=== PATIENT | female | born 1975 | race Caucasian/White ===

== ENCOUNTER → 2018-02-07 12:41 | Outpatient (CLI) | payer BC, SELFPAY ==
--- NOTE | 2018-02-07 12:44 | XR_ITS ---
XR foot wt bearing RT 3V HISTORY: ITS.REASON: pain ORDERING PHYSICIAN: Graciela Delvalle DPM PATIENT AGE: 42 years COMPARISON: None FINDINGS: There is mild hallux valgus with first metatarsal phalangeal angle of 21 degrees with minimal hypertrophic change of the distal aspect of the first metatarsal. There is mild pes planus with Mearys angle of -14 degrees. A small calcaneal spur 5 mm. No fracture or dislocation. No lytic or blastic change. There is mild prominence of the space at the base of the first and second metatarsals however, the alignment of the second metatarsal tarsal joint is maintained.. A well-circumscribed calcific density which may represent a accessory center of ossification or sesamoid bone is present at the base of the first metatarsal laterally IMPRESSION: 1. Hallux valgus with bunion formation 2. Pes planus. 3. Mild prominence of the space at the base of the first and second metatarsal
--- NOTE | 2018-02-07 12:44 | XR_ITS ---
XR foot wt bearing LT 3V HISTORY: ITS.REASON: pain ORDERING PHYSICIAN: Graciela Delvalle DPM PATIENT AGE: 42 years COMPARISON: 02/10/2008 FINDINGS: There is mild hallux is with first metatarsophalangeal angle of 24 degrees with mild hypertrophic change of the distal aspect of the first metatarsal. Small calcaneal spur is noted. There is mild prominence of the space between the base of the first and second metatarsals of 5 mm. The second metatarsal tarsal junction however is maintained. No fracture or dislocation. There is a well-circumscribed calcific density along the base of the first metatarsal laterally similar to the previous exam of 02/10/2008 IMPRESSION: Hallux valgus with bunion formation Prominence of the space at the base of the first and second metatarsals
== END ==
PROVIDERS: PCP Emergency Medicine; Visit Provider Podiatrist
DX: M79.671 Pain in right foot (principal); M79.672 Pain in left foot
CPT/HCPCS: 73630

== ENCOUNTER → 2018-02-16 14:52 | Outpatient (REF) | payer BC, SELFPAY | LOC: LAB 14:52 | PROVIDERS: Visit Provider Podiatrist | DX: M67.471 Ganglion, right ankle and foot (principal) | CPT/HCPCS: 87070; 87205 ==

== ENCOUNTER → 2020-09-03 15:03 | Outpatient (CLI) | payer BC, SELFPAY ==
[2020-09-03 15:13] LABS: Basophils # 0.1 K/mm3 (0-0.2); Basophils % 0.9 % (0.1-2.0); Eosinophils # 0.1 K/mm3 (0.0-0.4); Eosinophils % 1.6 % (0.1-12.0); Hematocrit 50.6 % (37.0-47.0); Hemoglobin 16.9 g/dL (12.2-16.2); Lymphocytes # 1.1 K/mm3 (0.7-4.5); Lymphocytes % 14.3 % (10-50); Mean Corpuscular HGB Conc 33.4 g/dL (31.8-35.4); Mean Corpuscular Hemoglobin 31.8 pg (27.0-31.2); Mean Corpuscular Volume 95.3 fl (81-99); Mean Platelet Volume 7.9 fl (7.4-10.4); Monocytes # 0.3 K/mm3 (0.1-1.0); Monocytes % 3.9 % (1.7-9.3); Neutrophils # 6.3 K/mm3 (1.8-7.8); Neutrophils % 79.3 % (37.0-80.0); Platelet Count 375 K/mm3 (142-424); Red Blood Count 5.31 M/mm3 (4.20-5.40); Red Cell Distribution Width 13.9 % (11.5-17.5)
[2020-09-03 15:22] LABS: Alanine Aminotransferase 20 U/L (12-78); Albumin Level 4.8 g/dl (3.5-5.0); Albumin/Globulin Ratio 1.5 (1.1-1.8); Alkaline Phosphatase 81 U/L (38-126); Anion Gap 10.9 mEq/L (5-15); Aspartate Amino Transferase 24 U/L (14-36); Bilirubin,Total 0.5 mg/dl (0.2-1.3); Blood Urea Nitrogen 15 mg/dl (7-17); Calcium 10.1 mg/dl (8.4-10.2); Carbon Dioxide 28 mmol/L (22.0-30.0); Chloride 107 mmol/L (98-107); Chol/HDL Ratio 2.9 (1-3.5); Cholesterol 181 mg/dl (140-200); Estimated Glomerular Filt Rate 78 ml/min (>60); GFR (African American) 95 ML/MIN (>60); Globulin 3.2 g/dL (1.3-3.2); Glucose 99 mg/dl (74-100); HDL Cholesterol 62 mg/dl (40-60); Potassium 4.9 mmoL/L (3.5-5.1); Sodium 141 mmol/L (136-145); Triglycerides 105 mg/dl (30-150); VLDL Cholesterol 21 mg/dL (0-40)
[2020-09-03 15:35] LABS: Direct LDL Cholesterol 91.51 mg/dL (100-129)
[2020-09-03 15:39] LABS: 25-OH Vitamin D, Total 43.8 ng/mL (30-100)
[2020-09-03 16:24] LABS: Free T4 (Free Thyroxine) 1.18 ng/dl (0.78-2.19)
[2020-09-03 16:38] LABS: Thyroid Stimulating Hormone 2.25 uIU/mL (0.465-4.68)
== END ==
PROVIDERS: Visit Provider Physician Assistant
DX: R53.83 Other fatigue (principal); R20.2 Paresthesia of skin; R53.1 Weakness
CPT/HCPCS: 80053; 80061; 82306; 84439; 84443; 85025

== ENCOUNTER → 2020-09-26 15:46 | Outpatient (CLI) | payer BC, SELFPAY ==
--- NOTE | 2020-09-26 15:46 | MM_ITS ---
PROCEDURE: MM DIG SCREENING MAMM BI W/CAD Digital Breast Tomosynthesis Included CLINICAL INDICATION: Breast cancer screening There is no personal or family history of breast cancer. COMPARISON: MG DMSB DIG MAMM-SCREEN BERNARD W/CAD from 07/08/2017 TECHNIQUE: Standard CC and MLO images and 3D Tomosynthesis was obtained. R2 CAD reviewed. FINDINGS: Scattered fibroglandular densities are seen in both breast and the findings are bilateral and symmetrical. There are a few benign-appearing microcalcifications in each breast. There is a stable small nodular benign-appearing density outer quadrant left breast. There is a mole marker axillary tail right breast. There are no CAD markings. IMPRESSION: Fibrofatty parenchyma with no suspicious lesions seen BI-RAD Category: 2 Benign Finding(s) FOLLOW-UP: 1YR 1 Year Follow-up (A letter has been sent to the patient regarding results of the study.) Dictated by: Dr. Romario Navarro MD 09/28/2020 11:31 Dr. Romario Navarro MD in [place] 09/28/2020 11:31
== END ==
PROVIDERS: PCP Emergency Medicine; Visit Provider Physician Assistant
DX: Z12.31 Encounter for screening mammogram for malignant neoplasm of breast (principal)
CPT/HCPCS: 77063; 77067

== ENCOUNTER → 2021-01-08 16:38 | Outpatient (CLI) | payer BC, SELFPAY ==
[2021-01-08 17:48] LABS: Basophils % 0.4 % (0.1-2.0); Eosinophils # 0.1 K/mm3 (0.0-0.4); Hematocrit 43.1 % (37.0-47.0); Hemoglobin 14.9 g/dL (12.2-16.2); Lymphocytes % 25.3 % (10-50); Mean Corpuscular HGB Conc 34.5 g/dL (31.8-35.4); Mean Corpuscular Volume 89.8 fl (81-99); Mean Platelet Volume 7.2 fl (7.4-10.4); Monocytes # 0.4 K/mm3 (0.1-1.0); Neutrophils # 5.4 K/mm3 (1.8-7.8); Neutrophils % 68.3 % (37.0-80.0); Platelet Count 310 K/mm3 (142-424); Red Cell Distribution Width 13.5 % (11.5-17.5); White Blood Count 7.9 K/mm3 (4.8-10.8)
[2021-01-08 18:21] LABS: Prothrombin Time 10.7 seconds (10.1-12.5)
[2021-01-08 18:22] LABS: Alanine Aminotransferase 20 U/L (12-78); Albumin Level 4.6 g/dl (3.5-5.0); Albumin/Globulin Ratio 1.7 (1.1-1.8); Alkaline Phosphatase 65 U/L (38-126); Aspartate Amino Transferase 26 U/L (14-36); Bilirubin,Total 0.4 mg/dl (0.2-1.3); Blood Urea Nitrogen 17 mg/dl (7-17); Calcium 9.1 mg/dl (8.4-10.2); Carbon Dioxide 28 mmol/L (22.0-30.0); Chloride 102 mmol/L (98-107); Chol/HDL Ratio 2.8 (1-3.5); Cholesterol 164 mg/dl (140-200); Estimated Glomerular Filt Rate 78 ml/min (>60); GFR (African American) 95 ML/MIN (>60); Globulin 2.7 g/dL (1.3-3.2); Glucose 86 mg/dl (74-100); HDL Cholesterol 59 mg/dl (40-60); Sodium 140 mmol/L (136-145); Total Protein,Serum 7.3 g/dl (6.3-8.2); Triglycerides 57 mg/dl (30-150); VLDL Cholesterol 11 mg/dL (0-40)
[2021-01-08 18:33] LABS: Direct LDL Cholesterol 87.31 mg/dL (100-129)
[2021-01-08 18:39] LABS: T4 (Thyroxine) 8.7 ug/dl (5.53-11.0)
[2021-01-08 18:53] LABS: Thyroid Stimulating Hormone 2.03 uIU/mL (0.465-4.68)
== END ==
PROVIDERS: Visit Provider Nurse Practitioner Family
DX: R23.3 Spontaneous ecchymoses (principal)
CPT/HCPCS: 80053; 80061; 84436; 84443; 85025; 85610

== ENCOUNTER 2021-05-23 18:15 | Emergency (ER) | payer BC, SELFPAY ==
[2021-05-23 18:37] VITALS: BP 177/106; PULSE 80; RESP 22; TEMP 36.8; O2SAT 97
--- NOTE | 2021-05-23 18:43 | HMH.EDUTC ---
[facility] [place] Disposition Clinical Impression: Trapezius muscle spasm Disposition: Home, Self-Care Condition on Discharge: Good Instructions: DI for Muscle Spasm Additional Instructions: Drink plenty of water and try to gently massage area Prescriptions: Cyclobenzaprine HCl [Cyclobenzaprine 10mg Tab*] 10 mg PO TIDP PRN 30 Days #60 tab PRN Reason: Muscle Spasm Transmission Status: Pending to [facility] Naproxen [Naproxen 500mg tab] 500 mg PO BID 10 Days #30 tab Transmission Status: Pending to [facility] Referrals: Rosita Heaton PA [Primary Care Provider] - Time of Disposition: 18:56 Medical Decision Making - Андрей Inquiry Pt receiving controlled substance: No Vital Signs: 05/23/21 18:37 Temperature 98.3 F Temperature Source Oral Pulse Rate [Right Brachial] 80 Respiratory Rate 22 Blood Pressure [Right Arm] 177/106 H Blood Pressure Mean [Right Arm] 129 Blood Pressure Source [Right Arm] Automatic Cuff Blood Pressure Position [Right Arm] Sitting 02 Sat by Pulse Oximetry 97 Oxygen Delivery Method Room Air [facility] [place] HPI - General Stated complaint: MED[facility] from Pain in neck and right arm Time Seen by Provider: 05/23/21 18:43 Mode of Arrival: Ambulatory Source of Information: Patient Limitations: No Limitations Description of Symptoms (Recalled from Triage Doc. by RN): arm pain HEENT Symptoms (Recalled from RN notes): No Resp Symptoms (Recalled from RN notes): No Skin Symptoms (Recalled from RN notes): No MS Symptoms (Recalled from RN notes): Yes Functional Status (Recalled from RN notes): yes - History of Present Illness Provider Complaint: Patient has had headaches, neck pain. Has been seeing chiropractor and yesterday she went to PT and had dry needling. 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 About nursing home through her route today, she started having pain in her right shoulder blade, radiating into neck and down right arm. She used a numbing patch but didn't get any relief. Tried to take an old Flexeril, but dropped it in the toilet. Onset (ago): day(s) (1) Location: right, upper extremity Radiation: extremity Severity: moderate Severity scale (1-10): 8 Quality: burning, stabbing Consistency: constant Relieving factors: immobilization Exacerbating factors: movement Associated symptoms: denies other symptoms Treatments prior to arrival: heat therapy - Related Data Previous Rx's Medication Instructions Recorded Cyclobenzaprine HCl 10 mg PO TIDP PRN 30 Days #60 tab 05/23/21 [Cyclobenzaprine 10mg Tab*] Naproxen [Naproxen 500mg tab] 500 mg PO BID 10 Days #30 tab 05/23/21 Allergies Allergy/AdvReac Type Severity Reaction Status Date / Time No Known Allergies Allergy Unverified 01/08/21 15:44 - Worker's Comp Is this a Worker's Comp case?: No Is this an [employer] Worker's Comp?: No Is this a [place] Worker's Comp?: No [facility] History - Hepatitis A Screen Drug use history?: No High risk sexual behaviors?: No History of sexually transmitted infection?: No Currently employed?: No Childcare worker?: No Do you have indoor plumbing?: Yes Do you have electricity?: Yes Attestation statement:: This patient has been screened for Hepatitis A risk factors. I have reviewed the patient's past medical history: Yes Medical History: Reports:: Anxiety, Depression Comment: Fibroid tumors Other Surgeries: Yes: , Other Comment: 05/2020; Fibroid - Social History Smoking Status: Never smoker Alcohol Intake: never Alcohol Intake Frequency:: other Substance Use Type: denies use Occupational Status: other - Psychiatric History Pschychiatric History:: Reports:: Anxiety, Depression Family Hx:: Cancer, Hypertension ROS Obtained: Yes All systems reviewed & no additional complaints - Musculoskeletal Musculoskeletal: Reports numbness, Reports radiating pain into limb, Reports tingling Physical Exam - General General appearance: alert, other (patient uncomf
[2021-05-23 18:59] VITALS: BP 177/106; PULSE 80; RESP 22; TEMP 36.8
== END 2021-05-23 18:59 | disposition home or self-care (01) ==
PROVIDERS: Emergency Provider Physician Assistant; PCP Physician Assistant
DX: M62.838 Other muscle spasm (principal); M54.12 Radiculopathy, cervical region
CPT/HCPCS: 96372; 99202; G0463

== ENCOUNTER 2021-05-24 15:10 | Emergency (ER) | payer BC, SELFPAY ==
[2021-05-24 15:12] VITALS: BP 159/108; PULSE 98; RESP 24; TEMP 36.7; O2SAT 98; BMI 29.2
--- NOTE | 2021-05-24 16:51 | HMH.EDGENADL ---
ED Disposition Clinical Impression: Cervical disc herniation Disposition: Home, Self-Care Condition on Discharge: Fair Instructions: DI for Herniated Disc Additional Instructions: Follow-up with your primary care provider on Wednesday to obtain a spine surgeon referral. Prednisone as prescribed. Percocet as needed for pain. Return to the emergency department if uncontrollable pain or increasing weakness of right arm or new weakness/numbness of other extremities or loss of bowel or bladder control. Additional instructions for CONTROLLED SUBSTANCES: You have been prescribed a medication that is a controlled substance. Controlled substances include pain medications known as opiates and sedative nerve medications known as benzodiazepines. Tramadol, fioricet, and gabapentin are also controlled substances. Some common opiates include: Codeine (such as Tylenol #3) Hydrocodone (Vicodin, Lortab, Lorcet, [place]) Oxycodone (Percocet, Percodan, Oxycodone, Oxy IR) Some common benzodiazepines include: Diazepam (Valium) Lorazepam (Ativan) Alprazolam (Xanax) Clonazepam (Klonopin) Oxazepam (Serax) All of these controlled substances are highly addictive and frequently abused. Misuse can and frequently does lead to addiction as well as overdose and . Medication should be stored in a locked cabinet or other secure storage unit. Do not store the medication in a motor vehicle. Short term supplies, 3 days or less, are prescribed because of the highly addictive nature of the medication. Any of the controlled substance medication NOT taken should be disposed of properly and NOT SAVED. The recommended method of disposing of unused medications is: Place the medicines in a sealable plastic bag. If the medicine is a solid, crush it or add water to dissolve it. Add something undesirable (cat litter, coffee grounds, etc.) Dispose of sealed bag in household trash Do not flush or pour unused medicines down a sink or drain. Controlled substances should not be shared, given away or sold. Because of the addictive nature and frequent abuse, these medications are sometimes stolen. These medications should be kept in a safe place where they cannot be stolen. Do not keep them in your car or purse. Lost or stolen prescriptions for controlled substances WILL NOT BE REFILLED in this emergency department, regardless of whether a police report was filed. Prescriptions: Oxycodone HCl/Acetaminophen [Percocet 5/325mg tablet] 1 tab PO Q6HP PRN #10 tablet PRN Reason: Moderate To Severe Pain Transmission Status: Received by [facility] predniSONE [Prednisone 20mg Tab] 20 mg PO BID #10 tab Transmission Status: Pending to [facility] Referrals: Rosita Heaton PA [Primary Care Provider] - - Critical Care Critical Care Time: No Attestation: On 05/24/21, the high probability of a clinically significant, sudden or life threatening deterioration of the following system(s) required my full and direct attention, intervention and personal management. The time I documented below is in addition to time spent performing reported procedures but includes the following listed in this critical care notation. Medical Decision Making - Андрей Inquiry Pt receiving controlled substance: Yes Андрей was queried for this patient: Yes Risks and benefits of using a controlled substance: were discussed with pt by me Vital Signs: 05/24/21 15:12 Temperature 98.1 F Temperature Source Oral Pulse Rate [Left Radial] 98 H Respiratory Rate 24 Blood Pressure [Left Arm] 159/108 H Blood Pressure Mean [Left Arm] 125 Blood Pressure Source [Left Arm] Automatic Cuff Blood Pressure Position [Left Arm] Sitting 02 Sat by Pulse Oximetry 98 Oxygen Delivery Method Room Air - Lab Data Lab Results 05/24/21 16:57: WBC 9.0, RBC 5.22, Hgb 16.3 H, Hct 49.7 H, MCV 95.2, MCH 31.3 H, MCHC 32.8, RDW 13.4, Plt Count 360, MPV 7.2 L, Neut % (Auto)
--- NOTE | 2021-05-24 16:53 | CT_ITS ---
PROCEDURE INFORMATION: Exam: CT Cervical Spine With Contrast Exam date and time: 05/24/2021 4:53 PM Age: 46 years old Clinical indication: Neck pain; Additional info: Radiculopathy after dry needling pain neck and down RT arm TECHNIQUE: Imaging protocol: Computed tomography images of the cervical spine with intravenous contrast. Radiation optimization: All CT scans at this facility use at least one of these dose optimization techniques: automated exposure control; mA and/or kV adjustment per patient size (includes targeted exams where dose is matched to clinical indication); or iterative reconstruction. Contrast material: ISOVUE; Contrast volume: 100 ml; Contrast route: IV; COMPARISON: No relevant prior studies available. FINDINGS: Bones/joints: No acute fracture. Normal alignment. Discs/Spinal canal/Neural foramina: At C5-C6 there is disc osteophyte complex resulting in right-sided neural foraminal narrowing. There appears to be a left paracentral disc extrusion at this level resulting in mass effect upon the thecal sac and spinal cord. No additional significant disc protrusion. No severe spinal canal stenosis. No significant neural foraminal narrowing. Lungs: Lung apices are normal. Soft tissues: Unremarkable. IMPRESSION: At C5-C6 there is disc osteophyte complex resulting in right-sided neural foraminal narrowing. There appears to be a left paracentral disc extrusion at this level resulting in mass effect upon the thecal sac and spinal cord. Recommend MRI of the cervical spine to confirm these findings as MRI is more sensitive and specific to discrete disc abnormalities.
[2021-05-24 17:11] LABS: Basophils # 0.1 K/mm3 (0-0.2); Basophils % 0.6 % (0.1-2.0); Chloride 103 mmol/L (98-107); Eosinophils # 0.1 K/mm3 (0.0-0.4); Eosinophils % 0.5 % (0.1-12.0); Hematocrit 49.7 % (37.0-47.0); Hemoglobin 16.3 g/dL (12.2-16.2); Lymphocytes # 1.5 K/mm3 (0.7-4.5); Lymphocytes % 17.1 % (10-50); Mean Corpuscular HGB Conc 32.8 g/dL (31.8-35.4); Mean Corpuscular Hemoglobin 31.3 pg (27.0-31.2); Mean Corpuscular Volume 95.2 fl (81-99); Mean Platelet Volume 7.2 fl (7.4-10.4); Monocytes # 0.4 K/mm3 (0.1-1.0); Monocytes % 4.2 % (1.7-9.3); Neutrophils % 77.6 % (37.0-80.0); Platelet Count 360 K/mm3 (142-424); Red Blood Count 5.22 M/mm3 (4.20-5.40); Red Cell Distribution Width 13.4 % (11.5-17.5); Sodium 138 mmol/L (136-145)
[2021-05-24 17:12] LABS: Potassium 4.1 mmoL/L (3.5-5.1)
[2021-05-24 17:14] LABS: Alanine Aminotransferase 19 U/L (12-78); Albumin Level 4.5 g/dl (3.5-5.0); Albumin/Globulin Ratio 1.6 (1.1-1.8); Alkaline Phosphatase 73 U/L (38-126); Anion Gap 12.1 mEq/L (5-15); Aspartate Amino Transferase 29 U/L (14-36); Bilirubin,Total 0.6 mg/dl (0.2-1.3); Blood Urea Nitrogen 11 mg/dl (7-17); Carbon Dioxide 27 mmol/L (22.0-30.0); Creatinine Clearance Estimated 146 mL/min (50-200); Estimated Glomerular Filt Rate 109 ml/min (>60); GFR (African American) 131 ML/MIN (>60); Globulin 2.8 g/dL (1.3-3.2); Total Protein,Serum 7.3 g/dl (6.3-8.2)
[2021-05-24 17:15] LABS: Calcium 9.6 mg/dl (8.4-10.2); Glucose 97 mg/dl (74-100)
[2021-05-24 17:20] LABS: C-Reactive Protein 0.8 mg/L (0-4)
[2021-05-24 17:33] LABS: Erythrocyte Sedimentation Rate 4 mm/hr (0-20)
[2021-05-24 20:16] VITALS: BP 162/94; PULSE 99; RESP 18; TEMP 36.8; O2SAT 100
== END 2021-05-24 20:20 | disposition home or self-care (01) ==
PROVIDERS: Emergency Provider Emergency Medicine; PCP Physician Assistant
DX: M54.12 Radiculopathy, cervical region (principal); M47.812 Spondylosis without myelopathy or radiculopathy, cervical region; F41.8 Other specified anxiety disorders
CPT/HCPCS: 72126; 80053; 85025; 85651; 86140; 96374; 96375; 96376; 99283; J2405; Q9967

== ENCOUNTER → 2021-05-29 10:27 | Outpatient (POV) | payer BC, SELFPAY ==
[2021-05-29 11:05] VITALS: BP 148/90; PULSE 94; RESP 18; O2SAT 98; BMI 29.8
--- NOTE | 2021-05-29 12:19 | HMH.PMCON ---
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 The patient is having worsening pain. We will order the patient lidocaine patches as she has been trying to use this for relief. We will order a cervical epidural steroid injection at C5-C6 area. She is not on any anticoagulation therapy. She will continue with her naproxen. She was unable to take Percocet or cyclobenzaprine. She has been advised to stop these medications and we will start her on tramadol 50 mg 1 tablet p.o. twice daily as needed for pain. We will see if this relieves pain until injections. We will also refer the patient for more physical therapy locally. She has had chiropractic therapy home therapy as well as online therapy. She has also tried dry needling. We will get the patient a neurosurgical referral as well to [facility] for disc herniation. We will see the patient back after her cervical epidural steroid injection for reevaluation symptoms. She is not on any anticoagulation therapy and is not diabetic. Risks and benefits of the procedure have been explained to the patient. Patient would like to proceed with the procedure. Possible side effects of corticosteroids have been discussed with the patient. Risks and benefits of the procedure have been explained to the patient. Patient would like to proceed with the procedure. Patient has been instructed to contact the clinic with any concerns before the next appointment. Dr. Mccullough has reviewed this note and agrees with this plan of care. This note was dictated using voice recognition software and make contain errors or omissions. 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 She says that she began to have to sleep specific ways to get any relief. The pain progressively worsened to the point she was unable to lie flat on her back. She does have to use a rolled up pillow or towel for relief under her neck. The patient is having pain radiating into her right arm and into her first and second finger. She has had dry needling in the past along with chiropractic therapy and online recommendations. She has tried diclofenac. She did go to the emergency room twice and was given Percocet as well as cyclobenzaprine and prednisone. These medications only made her groggy and did not help with pain. She is continuing with naproxen. The pain is a dull ache with radiation into her arm on the right side only. She says that she is having difficulty grasping objects and having difficulty raising her right arm. She does rate her pain a 7 out of 10. She is tearful today. She does have an MRI of her cervical spine. She has got minimal relief from treatments thus far. CC: Nathalie Kirkpatrick APRN [facility] History I have reviewed the patient's past medical history: Yes Medical History: Reports:: Anxiety, Depression *Have you ever received a pneumonia vaccine?: No *Have you received a fl
== END ==
PROVIDERS: Visit Provider Clinical Nurse Specialist Family Health
DX: M47.892 Other spondylosis, cervical region (principal); M54.12 Radiculopathy, cervical region; S13.101A Dislocation of unspecified cervical vertebrae, initial encounter; M50.20 Other cervical disc displacement, unspecified cervical region
CPT/HCPCS: 99202; G0463

== ENCOUNTER → 2021-06-11 12:40 | Outpatient (CLI) | payer BC, SELFPAY | PROVIDERS: PCP Physician Assistant; Visit Provider Physician Assistant | DX: M54.2 Cervicalgia (principal) ==

== ENCOUNTER 2021-06-13 07:52 | Day surgery (SDC) | payer BC, SELFPAY ==
[2021-06-13 08:03] VITALS: BP 179/101; PULSE 100; RESP 20; TEMP 36.9; O2SAT 99
[2021-06-13 09:02] VITALS: BP 180/88; PULSE 135; RESP 18; O2SAT 98
[2021-06-13 09:09] VITALS: BP 176/90; PULSE 117; RESP 18; O2SAT 99
[2021-06-13 09:19] VITALS: BP 172/107; PULSE 104; RESP 20; O2SAT 97
--- NOTE | 2021-06-13 10:01 | HMH.PMPROC ---
- Procedure Date: 06/13/21 Time: 10:01 Anesthesiologist:: Jaison Mccullough MD Complications:: None Pre-procedure Diagnosis:: Degenerative disc disease of the cervical spine with cervical radiculopathy symptoms Post-procedure Diagnosis:: Same Indications for Procedure:: Patient is a pleasant 46-year-old white female who we are treating for neck pain with cervical radicular symptoms. She has increasing pain in her neck radiating down into her right arm and right hand. We will do a cervical epidural steroid injection today to see if this helps with her pain symptoms. Procedure Details:: Cervical epidural steroid injection under fluoroscopy Informed consent was obtained and the risks and benefits of the procedure was explained to the patient. The patient was taken to the procedure room placed prone on the procedure table. The neck was prepped using ChloraPrep. The skin and subcutaneous tissues were anesthetized using lidocaine. I placed a 18-gauge epidural needle into the C5-C6 interspace and advanced using [id number] to air and fluoroscopic guidance. After confirmation of needle placement in the epidural space with dye, I injected 3 mL's lidocaine 1.5% and Depo-Medrol 80 mg. The patient tolerated the procedure well with no complications. Plan and Disposition:: We will follow-up with her in 2 weeks. Will reevaluate symptoms at that time.
== END 2021-06-13 09:20 | disposition home or self-care (01) ==
LOC: SC.PAINP 07:56
PROVIDERS: PCP Physician Assistant; Visit Provider Anesthesiology
DX: M50.10 Cervical disc disorder with radiculopathy, unspecified cervical region (principal); F32.A Depression, unspecified; F41.9 Anxiety disorder, unspecified; M19.90 Unspecified osteoarthritis, unspecified site
CPT/HCPCS: 62321; J1040; Q9966

== ENCOUNTER → 2021-07-03 10:16 | Outpatient (POV) | payer BC, SELFPAY ==
[2021-07-03 10:53] VITALS: BP 150/93; PULSE 78; RESP 18; O2SAT 98; BMI 29.2
--- NOTE | 2021-07-03 11:12 | P.CONS_ITS ---
[facility] Pain Management SOAP Note Subjective:: Patient is a pleasant 46-year-old white female who presents today for follow-up after #1 cervical epidural steroid injection at C5-C6. Patient says she got excellent relief and does not have any pain at this time. She does continue to have numbness in her first finger and thumb periodically. She says that the pain, however, has subsided. She does rate her pain a 0 out of 10 today. She does continue with physical therapy and is planning physical therapy today. She does continue using CBD salve and oil sublingual that she also feels gives her significant relief. Review of Systems General: No recent weight changes, no fever, no sleep disturbances Respiratory: No cough, no shortness of air, no recurring pulmonary infections Cardiovascular/peripheral vascular: No chest pain, no palpitations, no edema, no shortness of breath Gastrointestinal: No new onset incontinence, normal bowel movements reported Genitourinary: No new onset incontinence Musculoskeletal: Numbness first finger and thumb to right arm Psychiatric: [Normal mood/affect] Neurological: [Denies weakness in extremities], [denies balance issues] Objective:: Physical exam General: Alert and oriented x3, no acute distress, pleasant and cooperative Lungs: Respirations even and unlabored, symmetrical chest expansion Eyes: PERRL Musculoskeletal: Flexion and extension of cervical [spine] somewhat guarded secondary to pain, normal gait noted Neurological: Speech clear, no gross sensory deficit Assessment:: Degenerative disc disease cervical spine cervical radiculopathy symptoms Plan:: Patient is doing well overall. She would like to follow-up with us as needed. She says she has gotten significant relief from #1 cervical epidural steroid injection. She has been advised to contact the clinic if she has any concerns in the future. Patient has been instructed to contact the clinic with any concerns before the next appointment. Dr. Mccullough has reviewed this note and agrees with this plan of care. This note was dictated using voice recognition software and make contain errors or omissions. [facility] History I have reviewed the patient's past medical history: Yes Medical History: Reports:: Anxiety, Depression Denies:: Cancer, Diabetes Mellitus Type 1, Diabetes Mellitus Type 2, MRSA, Seizures *Have you ever received a pneumonia vaccine?: No *Have you received a flu vaccine this season?: Yes Other Medical History: Reports: Arthritis Other Surgeries: Yes: , Other Amputation: No Fractures: No - *Social History Smoking Status: Never smoker Alcohol Intake: never Alcohol Intake Frequency:: other Substance Use Type: denies use *Occupational Status:: employed Housing: house Household Members: spouse *Travel in the last 8 weeks: None - Psychiatric History Pschychiatric History:: Reports:: Anxiety, Depression Family Hx:: Cancer, Hypertension
== END ==
PROVIDERS: Visit Provider Clinical Nurse Specialist Family Health
DX: M50.10 Cervical disc disorder with radiculopathy, unspecified cervical region (principal)
CPT/HCPCS: 99212; G0463

== ENCOUNTER 2021-07-08 17:00 | Outpatient (RCR) | payer BC, SELFPAY ==
--- NOTE | 2021-06-06 11:36 | HMH.PTOPEV ---
PT Outpatient Evaluation Rehab PT Outpatient Evaluation Start: 06/06/21 11:21 Freq: Status: Active Protocol: Document 06/06/21 11:21 ALFREDO (Rec: 06/06/21 11:36 ALFREDO [id number]) Electronically Signed By Kaden Mg, PT 06/06/21 11:21 Outpatient Therapy Subjective History Subjective History Patient is a 46 year old female presenting to outpatient PT with reports of chronic cervical spine pain (1 year) with an acute radicular symptom exacerbation starting approx 1 week ago. Most recent imaging indicates C5/6 disc osteophyte. Radicular symtpoms increase with cervical flexion indicating disc pathology. No other comorbidities to report. She has previously seen in PT and chiro with minimal relief noted. She was referred to pain mangement for epidural injections, but patient opted to try PT first secondary to fear avoidance. Chief Complaint Pain,Paresthesia Symptom Type Ache,Sharp,Numbness,Tingling Symptoms Relieved By Rest/Positioning,Ice,OTC Meds, Prescription Meds Symptoms Aggravated By Physical Activity Prior Functional Limitations None Current Functional Limitations Reaching,Lifting,Housework, Driving,Sleeping Symptom Description Constant but Variable Level of pain today (0-10) 2 Pain scale - at its best (0-10) 2 Pain scale - at its worst (0-10) 10 Cervical Eval Palpation Cervical Muscles R Cervical Paraspinal,R Suboccipital,R SCM,R CT Junction,R Thoracic Paraspinals Cervical/Thoracic Palpation Findings Tenderness,Spasm,Trigger Point Posture Head/C-Spine Posture Sitting Position C-Spine Flattened Head/C-Spine Posture Standing Position C-Spine Flattened Flexibility Deficits Upper Trapezius Muscle Length (R) Moderate Tightness Levaetor Scapulae Muscle Length (R) Moderate Tightness Scalene Group Muscle Length (R) Moderate Tightness Pectoralis Minor Muscle Length (R) Moderate Tightness Passive Joint Mobility Cervical PIVM Dec: R OA L OA R AA L AA
--- NOTE | 2021-07-03 13:11 | HMH.RHREAS ---
Rehab Reassessment Rehab OP Re-assessment Start: 07/03/21 13:00 Freq: Status: Active Protocol: Document 07/03/21 13:00 ALFREDO (Rec: 07/03/21 13:10 ALFREDO [id number]) Electronically Signed By Kaden Mg, PT 07/03/21 13:00 Rehab Re-assessment Subjective Subjective Patient reports 75% improvement since start of care. Objective Objective Notes Cervical AROM: WFL MMT: 5/5 grossly Pain: 2/10 today; 4/10 at worst over past week Special tests: spurlings - Neuro: dec sensation C6 Assessment Progress Assessment Progressing as Expected Assessment Notes Patient is tolerating progression of Rx well. She recently received an epidural injection that has provided some significant relief. Patient is experiencing decreased radicular symptoms and other objective improvements as noted above. She contiues to have functional limitations with overhead lifting and household related activities. Patient goals met STG 2; LTG 1,2,3,4 Goals Not Met STG 1; LTG 5,6,7,8 Revised Goals NA Plan Plan Continue with current POC. Frequency of Therapy 2x/week Duration of therapy 4 weeks Time and Billing Re-Eval Time 15 Re-Eval Billing Units 1 PHYSICIAN CERTIFICATION: I certify the specified therapy services for Matilde Ricks are required, authorized, and reviewed every 30 days.
== END 2021-07-08 17:05 | disposition home or self-care (01) ==
LOC: PT 17:00
PROVIDERS: Visit Provider Anesthesiology
DX: M50.20 Other cervical disc displacement, unspecified cervical region (principal)
CPT/HCPCS: 97010; 97012; 97014; 97110; 97140; 97163; 97164; G0283

== ENCOUNTER → 2021-08-05 15:25 | Outpatient (CLI) | payer BC, SELFPAY | PROVIDERS: PCP Physician Assistant; Visit Provider Nurse Practitioner | DX: U07.1 COVID-19 (principal) | CPT/HCPCS: C9803; U0003; U0005 ==

== ENCOUNTER 2023-10-01 12:07 | Emergency (ER) | payer BC, SELFPAY ==
[2023-10-01] VITALS (7 sets, daily range): BP systolic 115–189; BP diastolic 63–115; PULSE 69–91; RESP 14–20; TEMP 36.6–36.7; O2SAT 98–100; BMI 24.0
--- NOTE | 2023-10-01 12:06 | ECG_ITS ---
APPROVED REPORT Exam: Resting ECG HR:87 bpm ECG Measurements Heart Rate 87 AXES [place] 128 P 75 QRSd 86 QRS 80 QT 371 T 55 QTc 416 Conclusion SINUS RHYTHM POSSIBLE RIGHT ATRIAL ENLARGEMENT [0.25mV P-WAVE] POSSIBLE LEFT ATRIAL ENLARGEMENT [-0.1mV P-WAVE IN V1/V2] POSSIBLE LEFT VENTRICULAR HYPERTROPHY Electronically signed by : DIEGO SCOTT, 10/01/2023 17:10:23
--- NOTE | 2023-10-01 12:11 | ED_ITS ---
Discharge Plan Disposition Patient Disposition: Home, Self-Care Condition: Good Prescriptions Prescriptions: New hydroxyzine HCl 25 mg tablet 25 mg PO Q8H PRN (Reason: nausea and vomiting) Qty: 30 0RF Referrals Follow up/Referrals: Diana Gardner PA [Primary Care Provider] - See instructions Activity Restrictions/Add. Instructions Additional Instructions/Restrictions: Please return to the emergency department if you experience any new or worsening symptoms. Clinical Impressions Clinical Impression: Acute anxiety Discharge ED Provider: V[facility] Zaragoza Adult HPI General Chief complaint: Anxiety Stated complaint: anxiety Time Seen by Provider: 10/01/23 12:08 Mode of Arrival: Ambulatory Source of Information: Patient Limitations: No Limitations Description of Symptoms (Recalled from ER Triage Doc. by RN): Patient reports increased anxiety. States that she ate some gummies and had an arguement with her and since then she has had an increased heart rate. Patient is very anxious and ripping her blood pressure cuff off. History of Present Illness HPI narrative: Patient presents with tachycardia that has been ongoing since this morning, she states she was at work and noticed her heart rate was elevated to the 120s. Concurrent symptoms include feeling of anxiety. She took a CBD gummy from a gas station last night. She denies any chronic medical issues. She did have a fall in the absence of head injury and describes pain over her coccyx. No numbness or tingling. No other coingestions. This was not with suicidal ideation. Denies any history of tachycardia. Denies any auditory or visual hallucinations. Upon manual palpation of her heart rate during the interview it is under 100. Please note that above description of symptoms, in this electronic medical record under categorization of recalled from ER triage doctor by RN are reflective of an initial nursing assessment, however, is not reflective of my full history and physical exam that was personally taken and clarified. Consequentially, this preceding description of symptoms, which may include the patient's categorized chief complaint in the EMR, do not reflect my personal clinical impression, and the ultimate description of history of present illness and patient stated complaints should be deferred to this section of the note. Unless stated otherwise or congruent with this section of the note, additional signs, symptoms, or incongruence should be interpreted as inaccurate with my clinical impression. Related Data Previous Rx's Medication Instructions Recorded hydroxyzine HCl 25 mg tablet 25 mg PO Q8H PRN nausea and 10/01/23 vomiting #30 tabs Allergies Allergy/AdvReac Type Severity Reaction Status Date / Time No Known Allergies Allergy Verified 09/30/23 15:37 [facility] Disclaimer: The information contained in this section may have been updated after the patient was seen, as this information can be updated by other users. Medical History Cervical disc herniation Cervical radiculopathy Degenerative joint disease of cervical spine No significant past medical history Traumatic disc herniation of cervical spine Surgical History History of section History of endometrial ablation Family History Other Colon cancer Family history of cancer Social History Smoking Status: Never smoker alcohol intake: never substance use type: denies use current occupational status: employed Travel in the last 8 weeks: None household members: spouse housing: house lives independently: Yes marital status: education level: high school caffeine: Yes special randa needs: No agree to transfusion: No do you feel safe at home: Yes victim of physical abuse: No victim of emotional abuse: No victim of sexual abuse: No would you like helpful sources: No ROS Obtained: Yes Systems reviewed as appropriate & no additional complaints except as documented As per HPI Physical Exam General General appearance: alert and anxious Head Head exam: atraumatic and normocephalic Eye Eye exam: Present normal appearance Neck Neck exam: Present normal inspection Chest Chest inspection: Present normal inspection and symmetric chest wall rise Respiratory Respiratory exam: Present normal lung sounds bilaterally; Absent respiratory distress Cardiovascular Cardiovascular exam: Present regular rate and normal rhythm Abdominal Exam Abdominal exam: Present soft Back Exam Back exam: Present other (Midline tenderness over her coccyx area, distally neurovascularly intact.) Neurological Exam Neurological exam: Present alert and oriented X3 Psychiatric Psychiatric exam: Present normal affect and normal mood Skin Skin exam: Present warm and dry Medical Decision Making Medical Records Medical records reviewed: Yes I reviewed the patient's medical records. Андрей Inquiry Pt receiving controlled substance: No Vital Signs: 10/01/23 12:07 10/01/23 12:30 10/01/23 13:30 Temperature 97.9 F Temperature Source Oral Pulse Rate 81 91 H Pulse Rate [Radial] 82 Respiratory Rate 20 17 18 Blood Pressure 165/115 H 176/78 H Blood Pressure [Right Arm] 189/110 H Blood Pressure Mean 110 Blood Pressure Mean [Right Arm] 136 Blood Pressure Source [Right Arm] Automatic Cuff Blood Pressure Position [Right Arm] Sitting 02 Sat by Pulse Oximetry 99 98 100 Oxygen Delivery Method Room Air Room Air 10/01/23 14:00 10/01/23 14:30 10/01/23 15:00 Temperature Temperature Source Pulse Rate 72 69 69 Pulse Rate [Radial] Respiratory Rate 14 16 17 Blood Pressure 140/96 H 165/72 H 115/63 Blood Pressure [Right Arm] Blood Pressure Mean Blood Pressure Mean [Right Arm] Blood Pressure Source [Right Arm] Blood Pressure Position [Right Arm] 02 Sat by Pulse Oximetry 98 100 100 Oxygen Delivery Method Room Air Room Air Room Air 10/01/23 15:29 Temperature 98.0 F Temperature Source Pulse Rate 89 Pulse Rate [Radial] Respiratory Rate 17 Blood Pressure 115/63 Blood Pressure [Right Arm] Blood Pressure Mean Blood Pressure Mean [Right Arm] Blood Pressure Source [Right Arm] Blood Pressure Position [Right Arm] 02 Sat by Pulse Oximetry Oxygen Delivery Method Lab Data Lab Results 10/01/23 12:11: WBC 10.5, RBC 4.99, Hgb 15.8, Hct 48.8 H, MCV 97.7, MCH 31.6 H, MCHC 32.3, RDW 13.6, Plt Count 313, MPV 7.2 L, Neut % (Auto) 80.0, Lymph % ( Auto) 12.9, [place] % (Auto) 6.1, Eos % (Auto) 0.5, Baso % (Auto) 0.5, Neut # (Auto) 8.4 H, Lymph # (Auto) 1.4, [place] # (Auto) 0.6, Eos # (Auto) 0.1, Baso # (Auto) 0.1, Sodium 140, Potassium 3.8, Chloride 107, Carbon Dioxide 26, Anion Gap 10.8, BUN 13, Creatinine 0.80, Estimated Creat Clear 88, Estimated GFR 77, Est GFR ( Amer) 93, Glucose 94, Calcium 9.5, Magnesium 2.1, Total Bilirubin 0.8, AST 29, ALT 24, Alkaline Phosphatase 65, Total Protein 7.3, Albumin 4.7, Globulin 2.6, Albumin/Globulin Ratio 1.8, TSH 1.73, Free T4 1.09 10/01/23 12:11 10/01/23 12:11 Orders (Tests/Meds): ED MEDICATIONS Discontinued Medications Generic Name Dose Route Start Last Admin Trade Name Freq PRN Reason Stop Dose Admin Lactated Ringer's 1,000 mls @ 999 mls/hr 10/01/23 12:39 10/01/23 12:48 Lactated Ringer's 1000 Ml Bag IV 10/01/23 13:39 999 mls/hr .Q1H1M ONE Administration Ketorolac Tromethamine 15 mg 10/01/23 12:39 10/01/23 12:50 Ketorolac 30mg/Ml Vial IV 10/01/23 12:40 15 mg ONCE ONE Administration Lorazepam 0.5 mg 10/01/23 12:39 10/01/23 12:50 Lorazepam 2mg/Ml Vial IV 10/01/23 12:40 0.5 mg ONCE ONE Administration Ondansetron HCl 4 mg 10/01/23 12:22 10/01/23 12:25 Ondansetron 4mg/2ml Vial IV 10/01/23 12:23 4 mg ONCE ONE Administration Sodium Chloride 10 ml 10/01/23 12:39 Sodium Chloride 0.9% 10ml Vial IV 10/31/23 12:38 NEEDED PRN to Dilute Lorazepam inj ORDERS Category Date Time Status XR sacrum coccyx min 2V Stat Exams 10/01/23 12:39 Completed CBC w/Auto Diff [Complete Blood Count Auto Diff] Stat Lab 10/01/23 12:11 Completed CMP [Comprehensive Metabolic Panel] Stat Lab 10/01/23 12:11 Completed Free T4 (Free Thyroxine) Stat Lab 10/01/23 12:11 Completed MAG [Magnesium] Stat Lab 10/01/23 12:11 Completed TSH [Thyroid Stimulating Hormone] Stat Lab 10/01/23 12:11 Completed Medical Decision Narrative: Patient with history and exam per above presenting for evaluation of anxiety, tachycardia Diagnoses considered include arrhythmia, electrolyte abnormality, ingestion, fracture, hypovolemia, panic attack, among others. Patient is clinically exhibiting no suicidal ideation, no auditory or visual hallucinations, no evidence of lux or psychosis ED workup and treatment included: ED MEDICATIONS Discontinued Medications Generic Name Dose Route Start Last Admin Trade Name Freq PRN Reason Stop Dose Admin Lactated Ringer's 1,000 mls @ 999 mls/hr 10/01/23 12:39 10/01/23 12:48 Lactated Ringer's 1000 Ml Bag IV 10/01/23 13:39 999 mls/hr .Q1H1M ONE Administration Ketorolac Tromethamine 15 mg 10/01/23 12:39 10/01/23 12:50 Ketorolac 30mg/Ml Vial IV 10/01/23 12:40 15 mg ONCE ONE Administration Lorazepam 0.5 mg 10/01/23 12:39 10/01/23 12:50 Lorazepam 2mg/Ml Vial IV 10/01/23 12:40 0.5 mg ONCE ONE Administration Ondansetron HCl 4 mg 10/01/23 12:22 10/01/23 12:25 Ondansetron 4mg/2ml Vial IV 10/01/23 12:23 4 mg ONCE ONE Administration Sodium Chloride 10 ml 10/01/23 12:39 Sodium Chloride 0.9% 10ml Vial IV 10/31/23 12:38 NEEDED PRN to Dilute Lorazepam inj ORDERS Category Date Time Status XR sacrum coccyx min 2V Stat Exams 10/01/23 12:39 Completed CBC w/Auto Diff [Complete Blood Count Auto Diff] Stat Lab 10/01/23 12:11 Completed CMP [Comprehensive Metabolic Panel] Stat Lab 10/01/23 12:11 Completed Free T4 (Free Thyroxine) Stat Lab 10/01/23 12:11 Completed MAG [Magnesium] Stat Lab 10/01/23 12:11 Completed TSH [Thyroid Stimulating Hormone] Stat Lab 10/01/23 12:11 Completed Labs were independently interpreted by me, significant for no acute findings Imaging was independently visualized and interpreted by me, significant for no acute osseous abnormality, likely finding of fibroid which was communicated to patient and she states she is aware of this diagnosis and will follow-up with her [employer] Patient reports improvement of symptoms upon repeat evaluation My clinical impression at this time is most consistent with acute anxiety, as well as exacerbation by CBD gummy I discussed my clinical impression with patient and answered all questions. At this time, the evidence for any other entities in the differential is insufficient to warrant any further testing or ED observation. This was explained to the patient. The patient was advised that persistent or worsening symptoms require further evaluation. I confirmed the patient's understanding of this discussion. Critical Care Critical Care Time Critical Care Time: No
[2023-10-01] MEDS: ONDANSETRON 4MG/2ML VIAL 4 MG IV (12:25)
--- NOTE | 2023-10-01 12:39 | XR_ITS ---
FINAL REPORT CLINICAL HISTORY: fall, sacral pain FINDINGS: AP and lateral views of the sacrum and coccyx were obtained. There is no prior exam for comparison. There is no acute fracture or other acute osseous abnormality. The SI joints are symmetric bilaterally. The sacrococcygeal articulation appears within normal limits. There is a large rounded calcification in the pelvis favored to be related to fibroids. IMPRESSION: No acute abnormality of the sacrum or coccyx. Probable large fibroid. Reviewed, Interpreted and Dictated by Casie Bryant MD Transcribed by Marcela Bowman Authenticated and [facility]
[2023-10-01] MEDS: LACTATED RINGERS 1000ML 1,000 ML 999 ML IV (12:48)
[2023-10-01] MEDS: KETOROLAC 30MG/ML VIAL 15 MG IV (12:50)
[2023-10-01] MEDS: LORazepam 2MG/ML VIAL 0.5 MG IV (12:50)
--- NOTE | 2023-10-01 12:55 | PC.NURSE ---
PT TO XR
[2023-10-01 12:58] LABS: Basophils # 0.1 K/mm3 (0-0.2); Basophils % 0.5 % (0.1-2.0); Eosinophils # 0.1 K/mm3 (0.0-0.4); Eosinophils % 0.5 % (0.1-12.0); Hematocrit 48.8 % (37.0-47.0); Hemoglobin 15.8 g/dL (12.2-16.2); Lymphocytes # 1.4 K/mm3 (0.7-4.5); Lymphocytes % 12.9 % (10-50); Mean Corpuscular HGB Conc 32.3 g/dL (31.8-35.4); Mean Corpuscular Hemoglobin 31.6 pg (27.0-31.2); Mean Corpuscular Volume 97.7 fl (81-99); Mean Platelet Volume 7.2 fl (7.4-10.4); Monocytes # 0.6 K/mm3 (0.1-1.0); Monocytes % 6.1 % (1.7-9.3); Neutrophils # 8.4 K/mm3 (1.8-7.8); Platelet Count 313 K/mm3 (142-424); Red Blood Count 4.99 M/mm3 (4.20-5.40); Red Cell Distribution Width 13.6 % (11.5-17.5); White Blood Count 10.5 K/mm3 (4.8-10.8)
--- NOTE | 2023-10-01 12:58 | PC.NURSE ---
rounded on pt she is resting bed call light in reach and visitor at bs
[2023-10-01 13:03] LABS: Alanine Aminotransferase 24 U/L (12-78); Albumin Level 4.7 g/dl (3.5-5.0); Albumin/Globulin Ratio 1.8 (1.1-1.8); Alkaline Phosphatase 65 U/L (38-126); Anion Gap 10.8 mEq/L (5-15); Aspartate Amino Transferase 29 U/L (14-36); Bilirubin,Total 0.8 mg/dl (0.2-1.3); Blood Urea Nitrogen 13 mg/dl (7-17); Calcium 9.5 mg/dl (8.4-10.2); Carbon Dioxide 26 mmol/L (22.0-30.0); Chloride 107 mmol/L (98-107); Creatinine Clearance Estimated 88 mL/min (50-200); Estimated Glomerular Filt Rate 77 ml/min (>60); GFR (African American) 93 ML/MIN (>60); Globulin 2.6 g/dL (1.3-3.2); Glucose 94 mg/dl (74-100); Magnesium 2.1 mg/dl (1.6-2.3); Potassium 3.8 mmoL/L (3.5-5.1); Sodium 140 mmol/L (136-145); Total Protein,Serum 7.3 g/dl (6.3-8.2)
[2023-10-01 13:33] LABS: Thyroid Stimulating Hormone 1.73 uIU/mL (0.465-4.68)
[2023-10-01 13:38] LABS: Free T4 (Free Thyroxine) 1.09 ng/dl (0.78-2.19)
== END 2023-10-01 15:30 | disposition home or self-care (01) ==
PROVIDERS: Emergency Provider Emergency Medicine; PCP Student in an Organized Health Care Education/Training Program
DX: R00.0 Tachycardia, unspecified (principal); F41.9 Anxiety disorder, unspecified; M53.3 Sacrococcygeal disorders, not elsewhere classified; W19.XXXA Unspecified fall, initial encounter
CPT/HCPCS: 72220; 80053; 83735; 84439; 84443; 85025; 93005; 96361; 96374; 96375; 99285; J2405

== ENCOUNTER 2023-10-08 14:31 | Outpatient (CLI) | payer BC, SELFPAY ==
--- NOTE | 2023-10-08 14:31 | MM_ITS ---
PROCEDURE INFORMATION: Exam: MG Bilateral Screening 3D Mammography Exam date and time: 10/08/2023 2:49 PM Age: 48 years old Clinical indication: Screening examination TECHNIQUE: Imaging protocol: Bilateral Screening tomosynthesis and 2D mammography including computer-aided detection (CAD) when performed. COMPARISON: 1. MG MM DIG SCREENING MAMM BI W/CAD 09/26/2020 3:50 PM 2. MG DMSB DIG MAMM-SCREEN BERNARD W/CAD 07/08/2017 8:42 AM FINDINGS: MAMMOGRAPHY: Breast composition: There are scattered areas of fibroglandular density. Mass: Questionable 0.9 cm ovoid mass in the middle third of the right lower outer quadrant. Architectural distortion: None. Calcifications: No suspicious calcifications. Asymmetric density: None. Skin thickening: None. Axillary adenopathy: None. IMPRESSION: Patient to be recalled for spot compression views of the right breast in the CC and MLO projections, a full 90 degree lateral view, and right breast ultrasound for further evaluation of a right breast mass. ASSESSMENT: BI-RADS Category 0: Incomplete- Need Additional Imaging Evaluation and/or Prior Mammograms for Comparison.
== END 2023-10-08 23:59 ==
LOC: RAD 14:31
PROVIDERS: PCP Student in an Organized Health Care Education/Training Program; Visit Provider Student in an Organized Health Care Education/Training Program
DX: Z12.31 Encounter for screening mammogram for malignant neoplasm of breast (principal)
CPT/HCPCS: 77063; 77067

== ENCOUNTER 2023-10-22 14:08 | Outpatient (CLI) | payer BC, SELFPAY ==
--- NOTE | 2023-10-22 14:09 | MM_ITS ---
PROCEDURE INFORMATION: Exam: US Right Breast, Complete MG Right Diagnostic Breast Tomosynthesis Exam date and time: 10/22/2023 2:16 PM Age: 48 years old Clinical indication: Patient recalled on the basis of a screening mammogram for further evaluation; Right breast; mass TECHNIQUE: Imaging protocol: Complete ultrasound of all four quadrants of the right breast and the retroareolar regions, including ultrasound of the axilla when performed. Right Diagnostic tomosynthesis and 2D mammography including computer-aided detection (CAD) when performed. Unilateral or bilateral exam. COMPARISON: 1. MG MM DIG SCREENING MAMM BI W/CAD 10/08/2023 2:49 PM 2. MG MM DIG SCREENING MAMM BI W/CAD 09/26/2020 3:50 PM FINDINGS: Breast composition: There are scattered areas of fibroglandular density (based on the most recent screening mammogram report). Digital diagnostic spot compression views of the right breast and 90 degree lateral view of the right breast demonstrate normal overlapping fibroglandular structures without persistent mass or asymmetry identified. ULTRASOUND: Sonographic images of the right breast including the retroareolar region, all 4 quadrants and the axilla do not demonstrate any solid or cystic masses. Cursors were placed over normal fatty tissue in the 9 o'clock axis. No architectural distortion or acoustical shadowing. No skin thickening or axillary adenopathy. IMPRESSION: No mammographic or sonographic evidence of malignancy. Annual bilateral mammographic screening is recommended unless otherwise clinically indicated. ASSESSMENT: BI-RADS Category 1: Negative.
== END 2023-10-22 23:59 ==
LOC: RAD 14:09
PROVIDERS: PCP Student in an Organized Health Care Education/Training Program; Visit Provider Student in an Organized Health Care Education/Training Program
DX: R92.8 Other abnormal and inconclusive findings on diagnostic imaging of breast (principal)
CPT/HCPCS: 76641; 77061; 77065; G0279

== ENCOUNTER 2024-01-25 06:34 | Day surgery (SDC) | payer BC, SELFPAY ==
[2024-01-24 11:01] VITALS: BMI 24.9
[2024-01-25 07:01] VITALS: BP 145/92; PULSE 78; RESP 16; TEMP 36.8; O2SAT 100
--- NOTE | 2024-01-25 07:09 | EXP.ANES.CKL ---
[facility] Disclaimer: The information contained in this section may have been updated after the patient was seen, as this information can be updated by other users. Medical History Traumatic disc herniation of cervical spine Cervical radiculopathy Degenerative joint disease of cervical spine Cervical disc herniation Surgical History History of hand surgery History of endometrial ablation History of section Family History Other Colon cancer Family history of cancer Social History Smoking Status: Never smoker alcohol intake: never substance use type: denies use current occupational status: employed Travel in the last 8 weeks: Outside the [facility] household members: spouse housing: house lives independently: Yes marital status: education level: high school caffeine: Yes special randa needs: No agree to transfusion: No do you feel safe at home: Yes victim of physical abuse: No victim of emotional abuse: No victim of sexual abuse: No would you like helpful sources: No [facility] Anesthesia Checklist Patient Identification Patient Identification: Arm Band and Verbal (Name & ) Structural Data Admitted From: Home Planned Operative Procedure/s: Colonoscopy Consent for Planned Operative Procedure(s) Verified: Yes Verified Documents: Surgical Consent and History and Physical NPO Status Verified Time NPO: 00:00 Chart Verification Results Verified: HCG Additional verifications Anesthesia Reactions: No Airway Assessment Mallampati Score:: Class I C-Spine Mobility Assessed: Yes TMJ Mobility Assessed: Yes Dentition: Good Dentition Neurological Assessment Level of Consciousness: Awake Hx Seizures: No Numbness or tingling in extremities: No Anesthesia Plan Anesthesia Risk discussed: Yes Anesthesia Plan: Verified ASA Class: II Anesthesia Type: MAC
--- NOTE | 2024-01-25 07:13 | P.PCN_ITS ---
Procedure: Date: 01/25/24 Patient Date of :: 1975 Procedure Performed:: Colonoscopy Indications:: Screening Family history of colon cancer Performing Provider:: Nestor Pal MD Referring Provider:: . Sedation:: Monitored anesthesia care Procedure:: After informed consent was obtained the patient was taken to the endoscopy suite. Sedation ensued after the patient was transferred to the left lateral d ecubitus position. Pulse, blood pressure, and oxygen saturation were monitored throughout the procedure. Digital rectal exam revealed no significant abnormality. The colonoscope was placed in position. The entire colon was evaluated. The colonoscope was carefully removed and the patient was transferred to recovery in stable condition. Please see findings and specimens below for detail. Findings:: Bowel preparation fair Moderate tortuosity Fairly profound lack of relaxation/spasticity (particularly sigmoid) Specimens:: None Recommendations:: Repeat colonoscopy in 2-3 years secondary to family history of colon cancer, tortuosity, and spasticity/lack of relaxation. Complications:: No immediate Estimated blood obtained (mL): 0 Colonoscopy Component Colonoscopy Component Was a colonoscopy performed during today's procedure?: Yes Recommended follow up colonoscopy of at least 10 years?: No If no, follow up colonoscopy recommended in ___ years?: (See above) Reason for not recommending >/= 10 yr follow-up interval?: (See above)
[2024-01-25 07:16] LABS: Urine Pregnancy, HCG Qual. Negative (Negative)
[2024-01-25] MEDS: LACTATED RINGERS 1000ML 1,000 ML 25 ML IV (07:18)
[2024-01-25 07:25] VITALS: O2SAT 100
[2024-01-25 08:10] VITALS: BP 109/61; PULSE 69; RESP 18; TEMP 36.6; O2SAT 100
[2024-01-25 08:20] VITALS: BP 118/83; PULSE 62; RESP 18; O2SAT 100
[2024-01-25 08:30] VITALS: BP 140/98; PULSE 62; RESP 18; O2SAT 100
[2024-01-25 08:40] VITALS: BP 152/90; PULSE 60; RESP 16; O2SAT 100
== END 2024-01-25 08:40 | disposition home or self-care (01) ==
PROVIDERS: PCP Student in an Organized Health Care Education/Training Program; Visit Provider Surgery
PROC: 0DJD8ZZ Inspection of Lower Intestinal Tract, Via Natural or Artificial Opening Endoscopic (ICD-10-PCS; CPT 45378; principal; 2024-01-25 07:30)
DX: Z12.11 Encounter for screening for malignant neoplasm of colon (principal); Z80.0 Family history of malignant neoplasm of digestive organs
CPT/HCPCS: 45378; 81025; J2704; J7120

== ENCOUNTER 2025-03-15 14:50 | Outpatient (CLI) | payer BC, SELFPAY ==
[2025-03-15 15:02] LABS: Hematocrit 43.8 % (37.0-47.0); Hemoglobin 14.4 g/dL (12.2-16.2); Immature Granulocytes % 0.4 %; Mean Corpuscular HGB Conc 32.9 g/dL (31.8-35.4); Mean Corpuscular Hemoglobin 30.9 pg (27.0-31.2); Mean Corpuscular Volume 94.0 fl (81-99); Nucleated Red Blood Cells % 0 %; Platelet Count 311 K/mm3 (142-424); Red Blood Count 4.66 M/mm3 (4.20-5.40); Red Cell Distribution Width-SD 46.3 fL; White Blood Count 9.6 K/mm3 (4.8-10.8)
[2025-03-15 16:31] LABS: Alanine Aminotransferase 19 U/L (12-78); Albumin Level 4.4 g/dl (3.5-5.0); Albumin/Globulin Ratio 2.1 (1.1-1.8); Alkaline Phosphatase 62 U/L (38-126); Anion Gap 10.4 mEq/L (5-15); Aspartate Amino Transferase 28 U/L (14-36); Bilirubin,Total 0.4 mg/dl (0.2-1.3); Blood Urea Nitrogen 15 mg/dl (7-17); Calcium 9.5 mg/dl (8.4-10.2); Carbon Dioxide 30 mmol/L (22.0-30.0); Chloride 102 mmol/L (98-107); Cholesterol 165 mg/dl (140-200); Creatinine,Serum 0.80 mg/dl (0.52-1.04); Estimated Glomerular Filt Rate 77 ml/min (>60); GFR (African American) 93 ML/MIN (>60); Globulin 2.1 g/dL (1.3-3.2); Glucose 87 mg/dl (74-100); HDL Cholesterol 62 mg/dl (40-60); Potassium 4.4 mmoL/L (3.5-5.1); Sodium 138 mmol/L (136-145); Total Protein,Serum 6.5 g/dl (6.3-8.2); Triglycerides 89 mg/dl (30-150)
[2025-03-15 17:02] LABS: Thyroid Stimulating Hormone 2.15 uIU/mL (0.465-4.68)
[2025-03-15 19:10] LABS: Hemoglobin A1C 4.7 % (4.0-6.0)
--- OUTSIDE RECORDS SUMMARY | 2025-03-19 14:53 | XMS_ITS | Clinical Summary ---
Author Organization [facility] Address [address] [id number] Care Team Providers Care Structural Ironworker Name Role Phone Kamille Heaton GILLIAN Primary Care Provider [phone] Allergies No known active allergies Social History Tobacco Use Types Packs/Day Years Used Date Smoking Tobacco: Never Smokeless Tobacco: Never Tobacco Cessation:Counseling Given: Not Answered Alcohol Use Standard Drinks/Week Comments Never 0 (1 standard drink = 0.6 oz pur e alcohol) Comments Unknown Sex and Gender Information Value Date Recorded Sex Assigned at Not on file Legal Sex Female 6:18 PM EDT Gender Identity Not on file Sexual Orientation Not on file Last Filed Vital Signs Vital Sign Reading Time Taken Comments Blood Pressure 159/77 04/29/2022 9:59 AM EDT Pulse 91 04/29/2022 9:59 AM EDT Temperature 37 C (98.6 F) 04/29/2022 9:59 AM EDT Respiratory Rate 17 04/29/2022 9:59 AM EDT Oxygen Saturation 97% 04/29/2022 9:59 AM EDT Inhaled Oxygen Concentration - - Weight - - Height - - Body Mass Index - - Plan of Treatment Not on file Insurance ANTHEM Care Teams Structural Ironworker Relationship Specialty Start Date End Date Kamille Heaton APRN [address] [place] [id number] PCP - General 04/29/22
--- OUTSIDE RECORDS SUMMARY | 2025-03-19 14:53 | XMS_ITS | Clinical Summary ---
Author Organization [facility] Address [address] [place] [address] Care Team Providers Care Voice Intercept Technician Name Role Phone Camacho Walsh MD Primary Care Provider Vikki vailable Allergies No known active allergies Medications loratadine-pseu doephedrine (CLARITIN-D 24-HOUR) 10-240 MG Take 1 tablet by mouth as needed for Allergies. Active ibuprofen (ADVIL) 200 MG tablet Take 400-600 mg by mouth every 6 (six) hours as needed for Pain. Active acetaminophen (TYLENOL) 500 MG tablet Take 2 tablets by mouth every 4 (four) hours as needed for Pain. 30 tablet 04/11/2020 Active Docusate Sodium (DSS) 100 MG CAPS Take 1 capsule by mouth 2 (two) times daily for 7 days. 14 capsule 04/11/2020 Active Active Problems Problem Noted Date Diagnosed Date Uterine fibroid 04/10/2020 Obesity 04/10/2020 Family History Medical History Relation Comments Cancer, Other or Unknown Type Father Cancer, Other or Unknown Type Mother Relation Status Comments Father Mother Social History Tobacco Use Types Packs/Day Years Used Date Smoking Tobacco: Never Smokeless Tobacco: Never Alcohol Use Standard Drinks/Week Comments Never 0 (1 standard drink = 0.6 oz pur e alcohol) Comments Unknown Sex and Gender Information Value Date Recorded Sex Assigned at Not on file Legal Sex Female 2:11 PM EDT Gender Identity Not on file Sexual Orientation Not on file Last Filed Vital Signs Vital Sign Reading Time Taken Comments Blood Pressure 123/75 04/11/2020 7:00 AM EDT Pulse 65 04/11/2020 7:00 AM EDT Temperature 36.5 C (97.7 F) 04/11/2020 7:00 AM EDT Respiratory Rate 16 04/11/2020 7:00 AM EDT Oxygen Saturation 100% 04/11/2020 7:00 AM EDT Inhaled Oxygen Concentration - - Weight 81.6 kg (180 lb) 04/10/2020 8:11 AM EDT Height 162.6 cm (5' 4 ) 04/10/2020 8:11 AM EDT Body Mass Index 30.9 04/10/2020 8:11 AM EDT Plan of Treatment Health Maintenance Due Date Last Done Comments Breast Cancer Screening 1977 CT Colonography 1975 Colonoscopy 1975 Colorectal Cancer Screening 1975 FIT-DNA 1975 FIT 1975 FOBT 1975 Sigmoidoscopy 1975 Hepatitis B (HepB) Vaccine ( 1 of 3 - 19+ 3-dose series) 02/15/1996 Tdap/Td Vaccine >11 yo (1 - Tdap) 02/15/1996 Cervical Cancer Screening 1998 Annual SDOH Screening 08/02/2024 Influenza Vaccine (#1) 2025 Hepatitis A (HepA) Vaccine Aged Out 08/04/2018 N o longer eligible based on patient's age to complete this topic Haemophilus Influenzae Type B (Hib) Vaccine Aged Out No longer eligible b ased on patient's age to complete this topic Meningococcal ACWY Aged Out No longer eligible based on patient's age to complete this topic Pneumococcal Vaccines 6-49 yo Risk Aged Out No longer eligible based on patient's age to complete this topic Polio (IPV) Aged Out No longer eligi ble based on patient's age to complete this topic Rotavirus (RV) Vaccine Aged Out No lo nger eligible based on patient's age to complete this topic Insurance [facility] [employer] Advance Directives * Full Code (Latest Code Status on File) Date Activated Date Inactivated Comments 04/10/2020 2:29 PM 04/11/2020 4:40 PM * Full Code Date Activated Date Inactivated Comments 04/10/2020 2:29 PM 04/10/2020 2:29 PM Care Teams Voice Intercept Technician Relationship Specialty Start Date End Date Camacho Walsh MD PCP - General General Surgery 04/10/20
== END 2025-03-15 23:59 ==
LOC: LAB.DROPOF 03-19 14:51
PROVIDERS: PCP Family Medicine; Visit Provider Family Medicine
DX: I10 Essential (primary) hypertension (principal); F41.9 Anxiety disorder, unspecified; E66.811 Obesity, class 1; R73.09 Other abnormal glucose
CPT/HCPCS: 80053; 80061; 83036; 84443; 85025